=== PATIENT | female | born 1940 | race Caucasian/White ===

== ENCOUNTER 2016-11-22 02:28 | Inpatient (IN) | payer MEDICARE, OTHER ==
[2016-11-22] MEDS ORDERED: [UNRECOGNIZED DRUG - OTHER] PO (02:47)
[2016-11-22] MEDS ORDERED: SYNTHROID25 MC1 PO (02:47)
[2016-11-22] MEDS ORDERED: DETROL LA4 M1 PO (02:48)
[2016-11-22] MEDS ORDERED: LASIX20 M1 PO (02:50)
[2016-11-22] MEDS ORDERED: LASIX40 M1 PO (02:50)
[2016-11-22] MEDS ORDERED: POTASSIUM CHLO20 ME4 PO (02:51)
[2016-11-22] MEDS ORDERED: ASPIRIN EC81 MG PO (02:51)
[2016-11-22 05:37] LABS: BASO % 0.2 % (0-2); EOS % 0.2 % (0-7); HCT-HEMATOCRIT 41.1 % (34.0-49.0); HGB-HEMOGLOBIN 13.6 gm/dl (12.0-15.5); IMMATURE GRANULOCYTES ABSOLUTE 0.03 tho/cmm (0-0.03); IMMATURE GRANULOCYTES PERCENT 0.2 % (0-0.3); LYMPH % 5.4 % (20-45); LYMPH ABSOLUTE COUNT 0.7 tho/cmm (0.8-4.5); MCH (MEAN CORPUSCULAR HGB) 28.8 pg (28.0-32.0); MCHC MEAN CORPUSCULAR HGB CONC 33.1 % (32.0-36.0); MCV (MEAN CELL VOLUME) 86.9 fl (82.0-96.0); MEAN PLATELET VOLUME 10.3 cmc (9.4-12.4); MONO % 7.5 % (0-12); MONOCYTE ABSOLUTE COUNT 0.9 tho/cmm (0.0-1.2); NEUTROPHIL ABSOLUTE COUNT 10.7 tho/cmm (1.6-8.0); NEUTROPHIL-AUTOMATED 10.7 tho/cmm (1.6-8.0); NEUTROPHILS % 86.5 % (40-80); PLATELET COUNT 216 tho/cmm (150-450); RED BLOOD COUNT 4.73 mil/cmm (4.00-5.20); RED CELL DISTRIBUTION WIDTH 13.6 % (12.4-16.4); WHITE BLOOD COUNT 12.4 tho/cmm (4.0-10.0)
[2016-11-22 05:38] LABS: INR 1.7 INR (0.9-1.1); PROTHROMBIN TIME 20.3 SECONDS (9.0-13.6)
[2016-11-22 05:47] LABS: ANION GAP 12 mmol/L (0-20); BLOOD UREA NITROGEN 25 mg/dl (6-24); CALCIUM 8.4 mg/dl (8.5-10.5); CARBON DIOXIDE-VENOUS 27 mmol/L (22-32); CHLORIDE 106 mmol/l (96-110); CHOLESTEROL 149 mg/dl (120-200); GLUCOSE 127 mg/dL (70-110); HDL CHOLESTEROL 86 mg/dl (40-60); LDL CHOLESTEROL 53 mg/dl (0-99); POTASSIUM 4.1 mmol/L (3.7-5.1); SODIUM 141 mmol/L (135-145); TRIGLYCERIDES 51 mg/dl (<149); VLDL 10 mg/dl (0-30); eGFR VALUE FOR BLACK 64 mL/Min
[2016-11-27] MEDS ORDERED: TYLENOL325 M2 PO (10:17)
[2016-11-27] MEDS ORDERED: PLAVIX75 M1 PO (10:17)
[2016-11-27] MEDS ORDERED: SENOKOT-S TABL1 EACH PO (10:18)
== END 2016-11-27 11:35 | disposition swing bed (61) | DRG 64 ==
LOC: CCU 02:28 → 5EB 11-24 12:00
PROVIDERS: ADMIT Hospitalist
DX: I63.411 Cerebral infarction due to embolism of right middle cerebral artery (principal); I61.8 Other nontraumatic intracerebral hemorrhage; G81.94 Hemiplegia, unspecified affecting left nondominant side; R47.01 Aphasia; R41.4 Neurologic neglect syndrome; H53.462 Homonymous bilateral field defects, left side; Z68.41 Body mass index [BMI] 40.0-44.9, adult; R29.718 NIHSS score 18; R29.810 Facial weakness; R13.10 Dysphagia, unspecified; R47.1 Dysarthria and anarthria; M25.512 Pain in left shoulder; N32.81 Overactive bladder; R20.1 Hypoesthesia of skin; E03.9 Hypothyroidism, unspecified; R35.0 Frequency of micturition; K59.00 Constipation, unspecified; E78.5 Hyperlipidemia, unspecified; I10 Essential (primary) hypertension; E66.01 Morbid (severe) obesity due to excess calories; R27.0 Ataxia, unspecified; W18.30XA Fall on same level, unspecified, initial encounter; Y92.009 Unspecified place in unspecified non-institutional (private) residence as the place of occurrence of the external cause; Z92.82 Status post administration of tPA (rtPA) in a different facility within the last 24 hours prior to admission to current facility; Z79.82 Long term (current) use of aspirin; Z82.49 Family history of ischemic heart disease and other diseases of the circulatory system; Z23 Encounter for immunization
CPT/HCPCS: A9577; C1758; G0009; J0131; J2270; J7030; J7050